=== PATIENT | female | born 1970 | race American Indian/Alaskan Native ===

== ENCOUNTER 2016-11-05 00:36 | Emergency (ER) | payer OTHER ==
[2016-11-05] MEDS ORDERED: PROVENTIL IH ONE (00:59)
[2016-11-05] MEDS ORDERED: ATROVENT IH ONE (01:00)
[2016-11-05] MEDS ORDERED: TYLENOL ONE (03:32)
[2016-11-05] MEDS ORDERED: TYLENOL PO ONE (03:34)
--- NOTE | 2016-11-05 05:24 | Emergency Department Report ---
HPI - General Chief Complaint: Adult Asthma Time Seen by Provider: 11/05/16 04:39 - HPI HPI: Patient here reports that for 2 weeks has been coughing and having asthma symptoms she says she ran out of her albuterol inhaler. She said today stenosis symptoms with chest discomfort when she coughs she said her lungs sounds tight. She is currently denies any chest pain at present and she also refuses prednisone in triage area. Patient EKG showed sinus tachycardia 102. She says she has adverse reaction to prednisone. Patient received DuoNeb treatment in triage area but she did not get any prednisone because she refused. She denies any difficulty breathing or chest pain at present pain is 0 -10. Denies any nausea vomiting. Denies any shortness of breath. ED Past Medical Hx - Past Medical History Previous Medical History?: Yes Hx Asthma: Yes Additional medical history: Seasonal Allergies - Surgical History Past Surgical History?: No - Family History Family history: asthma, hypertension - Social History Smoking Status: Never Smoker Substance Use Type: None - Medications Home Medications: Home Medications Medication Instructions Recorded Confirmed Last Taken Type ALBUTEROL Inhaler 2 puff IH Q4H PRN 11/05/16 11/05/16 Unknown History ALBUTEROL Inhaler [ProAir HFA 2 puff IH QID PRN #1 inhalation 11/05/16 Unknown Rx Inhaler] Azithromycin [Zithromax Z-PRIMITIVO] 250 mg PO DAILY #6 tab 11/05/16 Unknown Rx Cetirizine HCl [ZyrTEC] 10 mg PO QDAY #14 capsule 11/05/16 Unknown Rx Fluticasone [Flonase] 1 spray NS QDAY #1 bottle 11/05/16 Unknown Rx guaiFENesin/CODEINE [Robitussin AC] 5 ml PO BID PRN #70 oral.liqd 11/05/16 Unknown Rx ED Review of Systems ROS: Stated complaint: SHORTNESS OF BREATH, CHEST TIGHTNESS Other details as noted in HPI Comment: All other systems reviewed and negative Constitutional: denies: chills, fever Eyes: denies: eye discharge ENT: congestion. denies: ear pain, throat pain Respiratory: cough, wheezing. denies: orthopnea, shortness of breath, SOB with exertion, SOB at rest, stridor Cardiovascular: denies: chest pain, palpitations, edema, syncope Gastrointestinal: denies: nausea, vomiting Musculoskeletal: denies: back pain, arthralgia Skin: denies: rash Neurological: denies: headache, weakness, numbness, paresthesias, confusion, abnormal gait, vertigo Physical Exam - Physical Exam Vital Signs: Vital Signs 11/05/16 11/05/16 11/05/16 02:00 02:35 03:14 Temperature 98.4 F Pulse Rate 104 H Pulse Rate [ 98 H 96 H Posterior Bilateral Throughout] Respiratory 18 Rate Respiratory 20 18 Rate [Posterior Bilateral Throughout] Blood Pressure 143/91 Blood Pressure 143/91 [Left] O2 Sat by Pulse 99 Oximetry General: This is a 45-year-old female well-nourished well-developed in no acute distress. Physical Exam: Head: Normocephalic atraumatic Mouth: Moist, no pharyngeal exudate or erythema. Uvula is midline and oral airway is patent. No facial swelling. No peritonsillar abscesses. Nose: Congested with erythema to mucosa. Clear Drainage. Maxillary and frontal sinuses nontender to palpate Neck: Supple, no C-spine tenderness, no tracheal deviation. Nontender to palpate. no adenopathy Ears: Bilateral TMs congested without erythema. Bilateral EAC without any redness swelling or drainage. Abdomen: Soft, nontender to palpate in all quadrants, normal bowel sounds in all quadrant and negative CVA tenderness bilaterally. Eyes: Bilateral pupils equal and reactive to light, bilateral EOM intact. Bilateral sclera and conjunctiva without injection. Normal accommodation. Lungs: Scattered wheezing to lung donahue bilaterally with dry cough. Normal work of breathing. extremity; No CCE. +2 pulses. No neurovascular compromise Cardiovascular: S1-S2, tachycardic at 104 after breathing treatment, regular rhythm. No murmurs. Capillary refill less than 3 seconds Skin: clean Dry and intact no rash no lesions Psych: Normal mood and behavior ED Course Vital Signs 11/05/16 11/05/16 11/05/16 02:00 02:35 03:14 Temperature 98.4 F Pulse Rate 104 H Pulse Rate [ 98 H 96 H Posterior Bilateral Throughout] Respiratory 18 Rate Respiratory 20 18 Rate [Posterior Bilateral Throughout] Blood Pressure 143/91 Blood Pressure 143/91 [Left] O2 Sat by Pulse 99 Oximetry Vital Signs 11/05/16 11/05/16 11/05/16 02:00 02:35 03:14 Temperature 98.4 F Pulse Rate 104 H Pulse Rate [ 98 H 96 H Posterior Bilateral Throughout] Respiratory 18 Rate Respiratory 20 18 Rate [Posterior Bilateral Throughout] Blood Pressure 143/91 Blood Pressure 143/91 [Left] O2 Sat by Pulse 99 Oximetry 11/05/16 07:01 Temperature 98.1 F Pulse Rate 96 H Pulse Rate [ Posterior Bilateral Throughout] Respiratory 20 Rate Respiratory Rate [Posterior Bilateral Throughout] Blood Pressure Blood Pressure 109/61 [Left] O2 Sat by Pulse 98 Oximetry - Reevaluation(s) Reevaluation #1: 11/05/16 06:29 Patient received Tylenol 975 mg, Proventil 5 mg nebulizer and Atrovent 0.5 mg nebulizer in triage area which she said made her feel better. She refuses steroid. ED Medical Decision Making - EKG Data EKG shows normal: sinus rhythm Rate: tachycardia (102) - EKG Data Interpretation: no acute changes - Medical Decision Making ED course: I discussed the patient she will need to follow-up with her primary care physician for management of chronic asthma. I told her she doesn't have one that she can follow-up with outside Medical Center. Was given Proventil 5 mg and Atrovent 0.5 mg nebulizer. She refuses prednisone because she said she has bad reaction to prednisone. She says she felt better after treatment. Patient was also given Tylenol 975 mg per her request. I discussed with her that she has mild asthma exacerbation and she needs to make sure that she call [facility] oral primary care physician tomorrow morning to schedule an appointment for management of asthma. Patient discharged home with prescription for Albuterol, Zithromax, Zyrtec, Flonase and guaifenesin with codeine. Critical care attestation.: If time is entered above; I have spent that time in minutes in the direct care of this critically ill patient, excluding procedure time. ED Disposition Clinical Impression: Cough Asthma exacerbation attacks Qualifiers: Asthma severity: mild intermittent Qualified Code(s): J45.21 - Mild intermittent asthma with (acute) exacerbation Upper respiratory infection Qualifiers: URI type: unspecified URI Qualified Code(s): J06.9 - Acute upper respiratory infection, unspecified Disposition: DISCHARGED TO HOME OR SELFCARE Is pt being admited?: No Does the pt Need Aspirin: No Condition: Stable Instructions: Asthma (ED), Acute Cough (ED), Upper Respiratory Infection (ED) Additional Instructions: Please follow up with her primary care physician and if he did not have one. Follow-up with outside Medical Center Patient is take antibiotic as prescribed Increase fluid intake Please do not drive or operate heavy machinery while taking cough medicine as this can cause drowsiness. Prescriptions: ALBUTEROL Inhaler [ProAir HFA Inhaler] 2 puff IH QID PRN #1 inhalation PRN Reason: WHEEZING AND COUGH Azithromycin [Zithromax Z-PRIMITIVO] 250 mg PO DAILY #6 tab Cetirizine HCl [ZyrTEC] 10 mg PO QDAY #14 capsule Fluticasone [Flonase] 1 spray NS QDAY #1 bottle guaiFENesin/CODEINE [Robitussin AC] 5 ml PO BID PRN #70 oral.liqd PRN Reason: Cough Referrals: PRIMARY CARE, [Primary Care Provider] - 3-5 Days [facility] [Outside] - 3-5 Days Forms: Work/School Release Form(ED)
[2016-11-05 07:02] VITALS: BP 109/61
== END 2016-11-05 07:03 | disposition home or self-care (01) ==
LOC: ED 00:36
DX: J45.21 Mild intermittent asthma with (acute) exacerbation (principal); J06.9 Acute upper respiratory infection, unspecified
CPT/HCPCS: 93005; 93010; 94640; 99283